=== PATIENT | female | born 1960 | race Caucasian/White ===

== ENCOUNTER 2022-10-04 09:29 | Day surgery (SDC) | payer MEDICARE ==
[2022-10-04] MEDS: Sodium Chloride 0.9% 1,000 ML IV SCH (10:09)
[2022-10-04] MEDS: Sodium Chloride 0.9% 10 ML Syringe FLUSH PRN (10:09)
[2022-10-04] MEDS ORDERED: Midazolam 1 MG/ML 2 ML SDV ONE (10:52)
[2022-10-04] MEDS ORDERED: Propofol 200 MG/20 ML SDV ONE (10:52)
[2022-10-04 13:14] VITALS: BP 129/81; PULSE 79
== END 2022-10-04 12:38 | disposition home or self-care (01) ==
LOC: KA.SDS 09:29
PROVIDERS: ATTEND Surgery
DX: Z12.11 Encounter for screening for malignant neoplasm of colon (principal); D12.0 Benign neoplasm of cecum; D12.3 Benign neoplasm of transverse colon; D12.4 Benign neoplasm of descending colon; I10 Essential (primary) hypertension; Z79.899 Other long term (current) drug therapy; Z12.31 Encounter for screening mammogram for malignant neoplasm of breast
CPT/HCPCS: 00812; 77067; 82947; 88305; J2250; J2704; J3490; J7030